=== PATIENT | female | born 1995 | race Caucasian/White ===

== ENCOUNTER 2024-08-20 08:05 | Inpatient (IN) ==
[2024-08-20] MEDS: Buffered Lidocaine 1% SYRIN 1 ml INTRADERM ONE (11:02)
[2024-08-20 11:24] LABS: ABS Lymphocytes 1.3 10^3/uL (1.0-4.8); ABS Monocytes 0.5 10^3/uL (0.0-0.9); ABS Neutrophils 6.2 10^3/uL (1.5-7.6); ABS Nucleated RBC 0.03 10^3/ul; Eosinophil % 0.1 %; Hematocrit 37.9 % (35-45); Hemoglobin 13.2 g/dL (11.5-14.3); Lymphocyte % 16.8 %; Mean Corpuscular Hemoglobin 29.2 pg (27-33); Mean Corpuscular Hgb Conc 34.7 g/dL (31-36); Nucleated Red Blood Cells % 0.3 %/100WBC (0.0-0.8); Platelet Count 161 10^3/uL (150-450); Red Blood Count 4.51 10^6/uL (3.63-4.92); Red Cell Distribution Width 13.7 % (12-17)
[2024-08-20 11:44] LABS: Urine Creatinine Concentration 22.55 mg/dL (20.00-320.00); Urine TP Concentration < 5 mg/dL; Urine TP Creat Ratio 0.22 mg/mg
[2024-08-20 11:45] LABS: Urine Benzodiazepine Screen None Detected (None Detect); Urine Cannabinoids Screen None Detected (None Detect); Urine Opiates Screen None Detected (None Detect)
[2024-08-20 11:48] LABS: Albumin 3.6 g/dL (3.5-5.7); Albumin/Globulin Ratio 1.5 (1-3); Calcium 8.9 mg/dL (8.6-10.3); Creatinine, Serum 0.54 mg/dL (0.51-0.95); Globulin 2.4 g/dL (2-4); Potassium 4.2 mmol/L (3.5-5.0); Total Bilirubin 0.4 mg/dL (0.2-1.0); eGFR CKD-EPI 130.1 (>60)
[2024-08-20] MEDS: miSOPROStol 100 mcg TAB PO ONE (12:09)
[2024-08-20] MEDS: Oxytocin in LR 20,000 MILLI.UNIT/1,000 ML BAG IV SCH (21:00)
[2024-08-20] MEDS: Lactated Ringers 1000 ml BAG 1,000 ML IV SCH (21:00)
[2024-08-20] MEDS: Lactated Ringers 1000 ml BAG 1,000 ML IV ONE (21:04)
[2024-08-21] MEDS: Prochlorperazine 5 mg/ml 2 ml VIAL (10 mg) IV PRN (03:18)
[2024-08-21] MEDS: Nalbuphine 10 MG/ML 1 ML VIAL IV PRN (03:23)
[2024-08-21] MEDS ORDERED: Sodium Citrate/Citric Acid LIQ 15 ML UDC PO PRN (06:30)
[2024-08-21] MEDS ORDERED: Phenylephrine 40 mcg/mL 10mL (400mcg) SYRINGE IV PUSH PRN ×2 (06:30)
[2024-08-21] MEDS ORDERED: Lactated Ringers 1000 ml BAG 1,000 ML IV ONE (06:30)
[2024-08-21] MEDS ORDERED: Lidocaine 1.5% EPI 1:200,000 30 ML SDV ONE (06:49)
[2024-08-21] MEDS ORDERED: Lactated Ringers 1000 ml BAG 1,000 ML IV SCH ×2 (07:00→17:00)
[2024-08-21] MEDS: OBEPIDURAL (200 ML) 200 ML EPIDURAL SCH (09:59)
[2024-08-21 11:26] LABS: Urine Appearance Clear; Urine Bilirubin Negative (Negative); Urine Blood 1+ (Negative); Urine Color Light-Yellow; Urine Glucose Negative (Negative); Urine Ketones 1+ (Negative); Urine Nitrite Negative (Negative); Urine Protein Negative (Negative); Urine Specific Gravity 1.005 (1.002-1.030); Urine Urobilinogen Negative (Negative); Urine pH 6.5 (5.0-8.0)
[2024-08-21 11:35] LABS: Urine Bacteria Absent /HPF (Absent); Urine Red Blood Cell Trace(0-2/hpf) /HPF (0-Trace); Urine Squamous Epithelial Cell Present /HPF (Absent); Urine Transitional Epithelial Present /HPF (Absent); Urine White Blood Cell Trace(0-5/hpf) /HPF (0-Trace)
[2024-08-21] MEDS: Lidocaine 1% VIAL 10 MG/ML 30 ML VIAL INJ PRN (16:05)
[2024-08-21] MEDS ORDERED: RHO D Immune Globulin (HUMAN) 300 MCG = 1,500 I.U. INJ IM PRN (16:29)
[2024-08-21] MEDS: Witch Hazel PAD JAR TOPICAL PRN (17:12)
[2024-08-21] MEDS: Oxytocin in LR 20,000 MILLI.UNIT/1,000 ML BAG IV SCH (17:12)
[2024-08-21] MEDS: Dibucaine 1% OINT 28.35 GM TUBE PR PRN (17:12)
[2024-08-22 07:35] LABS: ABS Lymphocytes 1.3 10^3/uL (1.0-4.8); ABS Monocytes 0.5 10^3/uL (0.0-0.9); ABS Neutrophils 7.5 10^3/uL (1.5-7.6); Eosinophil % 0.2 %; Hematocrit 31.2 % (35-45); Mean Corpuscular Hemoglobin 30.2 pg (27-33); Mean Corpuscular Hgb Conc 35.2 g/dL (31-36); Mean Corpuscular Volume 85.7 fL (80-97); Mean Platelet Volume 8.2 fL (7.5-11.2); Platelet Count 121 10^3/uL (150-450); Red Blood Count 3.64 10^6/uL (3.63-4.92); White Blood Count 9.4 10^3/uL (3.8-11.8)
[2024-08-22 16:46] VITALS: BP 136/76
== END 2024-08-22 18:42 | disposition home or self-care (01) | DRG 807 ==
LOC: MCHOBOUT 08:05 → MCHOB 09:55
PROVIDERS: ADMIT Advanced Practice Midwife; ATTEND Midwife